=== PATIENT | female | born 1955 | race Caucasian/White ===

== ENCOUNTER 2018-12-22 17:37 | Emergency (ER) | payer SELFPAY ==
[~2018-12-22] VITALS: Ht 162.6 cm; Wt 61.2 kg
[2018-12-22 17:47] VITALS: Ht 162.6 cm; Wt 61.2 kg
[2018-12-22 19:55] VITALS: BP 142/70
== END 2018-12-22 19:55 | disposition home or self-care (01) ==
LOC: ED 17:37
DX: R07.89 Other chest pain (principal); Z86.2 Personal history of diseases of the blood and blood-forming organs and certain disorders involving the immune mechanism; V49.49XA Driver injured in collision with other motor vehicles in traffic accident, initial encounter; Y93.I9 Activity, other involving external motion; Y92.413 State road as the place of occurrence of the external cause; Y99.8 Other external cause status